=== PATIENT | female | born 1965 | race Caucasian/White ===

== ENCOUNTER 2020-09-23 18:29 | Emergency (ER) | payer SELFPAY ==
[2020-09-23] MEDS ORDERED: Acetaminophen 500 MG TAB ONE ×2 (18:49)
[2020-09-23] MEDS ORDERED: Azithromycin 250 MG TAB ONE (19:16)
[2020-09-23] MEDS ORDERED: Ibuprofen 800 MG TAB ONE (19:16)
== END 2020-09-23 19:33 | disposition home or self-care (01) ==
LOC: MADERS 18:29
DX: J02.0 Streptococcal pharyngitis (principal); R51.9 Headache, unspecified; R13.10 Dysphagia, unspecified; I10 Essential (primary) hypertension; E11.9 Type 2 diabetes mellitus without complications; K21.9 Gastro-esophageal reflux disease without esophagitis; E78.5 Hyperlipidemia, unspecified; E78.00 Pure hypercholesterolemia, unspecified; F17.210 Nicotine dependence, cigarettes, uncomplicated; Z79.84 Long term (current) use of oral hypoglycemic drugs; Z79.899 Other long term (current) drug therapy
CPT/HCPCS: 87081; 87430; 99283

== ENCOUNTER 2021-04-20 10:22 | Emergency (ER) | payer SELFPAY ==
[2021-04-20] MEDS ORDERED: methylPREDNISolone Sod Succ/PF 125 MG/2 ML VIAL ONE (10:58)
[2021-04-20] MEDS ORDERED: diphenhydrAMINE 50 MG/ML VIAL ONE (10:58)
[2021-04-20] MEDS ORDERED: Famotidine In NaCl 20 mg/50 ml Premix Bag ONE (10:58)
[2021-04-20] MEDS ORDERED: Ondansetron PF 4 MG/2 ML Vial ONE (10:58)
[2021-04-20] MEDS ORDERED: Sodium Chloride 0.9% 1,000 ML ONE (10:58)
== END 2021-04-20 13:13 | disposition home or self-care (01) ==
LOC: MADERS 10:22
DX: T78.2XXA Anaphylactic shock, unspecified, initial encounter (principal); L50.0 Allergic urticaria; R07.9 Chest pain, unspecified; R06.00 Dyspnea, unspecified; E11.9 Type 2 diabetes mellitus without complications; I10 Essential (primary) hypertension; K21.9 Gastro-esophageal reflux disease without esophagitis; E78.5 Hyperlipidemia, unspecified; E78.00 Pure hypercholesterolemia, unspecified; F17.210 Nicotine dependence, cigarettes, uncomplicated; Z79.84 Long term (current) use of oral hypoglycemic drugs; Z79.899 Other long term (current) drug therapy
CPT/HCPCS: 96374; 96375; J1200; J2405; J2930; J7050